=== PATIENT | male | born 1985 | race Caucasian/White ===

== ENCOUNTER → 2017-11-22 08:43 | Outpatient (CLI) | payer OTHER, SELFPAY ==
[2017-11-22 12:10] LABS: Anion Gap 6 (5-15); BUN 16 mg/dL (7-18); Calcium,Total 9.1 mg/dL (8.5-10.1); Chloride 105 mmol/L (98-107); Cholesterol 164 mg/dL (200); Creatinine, Serum 0.84 mg/dL (0.70-1.30); EST Glomerular Filtration Rate 112 mL/min (>60); Est Glom Filt Rate - Afr Amer 136 mL/min (>60); Glucose 89 mg/dL (74-106); High Density Lipoprotein 37 mg/dL; Potassium 4.5 mmol/L (3.5-5.1); Sodium Level 139 mmol/L (136-145); Triglycerides 102 mg/dL; Very Low Density Lipoprotein 20 mg/dL (5-40)
[2017-11-22 12:17] LABS: Hemoglobin A1c 5.8 % (4.2-6.3)
== END ==
PROVIDERS: Family Provider Family Medicine; PCP Family Medicine; Visit Provider Family Medicine
DX: R73.01 Impaired fasting glucose (principal); E78.5 Hyperlipidemia, unspecified
CPT/HCPCS: 36415; 80048; 80061; 83036

== ENCOUNTER 2021-11-05 15:39 | Outpatient (CLI) | payer BC, SELFPAY | END 2021-11-05 23:59 | disposition home or self-care (01) | PROVIDERS: PCP Family Medicine; Visit Provider Family Medicine | DX: G47.10 Hypersomnia, unspecified (principal) | CPT/HCPCS: 95806 ==

== ENCOUNTER → 2022-01-22 | Outpatient (CLI) | payer BC, SELFPAY | END | disposition home or self-care (01) | LOC: SL 02-05 19:03 | PROVIDERS: PCP Family Medicine; Referring Provider Family Medicine; Visit Provider Family Medicine | DX: G47.10 Hypersomnia, unspecified (principal) ==

== ENCOUNTER 2024-08-28 08:45 | Emergency (ER) | payer BC, SELFPAY ==
[2024-08-28 08:45] VITALS: BP 165/96; PULSE 91; RESP 18; TEMP 36.1; O2SAT 96
--- NOTE | 2024-08-28 09:05 | EX.ED.VIS.EY ---
HPI History of Present Illness Chief Complaint: Eye Problem Onset/Context/Timing Location: Right Eye Onset: Yesterday Context: Sudden Onset Timing: Continuous Worsened by: Opening his eye Relieved by: Closing his eye Associated Symptoms Associated Symptoms - Eyes: Burning, Crusting, Drainage, Eyelid swelling, Foreign body sensation, Matting, Pain, Photophobia and Redness Visual Changes: right: Blurred vision History of injury: Yes Visual correction: None Narrative Narrative: Patient presents with a right eye injury that occurred last night. Patient states he was milking his cow when he bent over and his daughter accidentally kicked him in the right eye with her boot that had cow manure or on it. Patient admits to some burning, redness, swelling, matting, and crusting. Patient admits to some blurred vision in his right eye. Patient denies wearing contacts or glasses. Patient denies any headaches. PFSH PFSH Medical History no medical history no medical history Home Medications ?Medication ?Instructions ?Recorded ?Last Taken ?Type naproxen 500 mg tablet (Naprosyn) 500 mg PO BID #14 tabs 06/18/15 Unknown Rx Allergy/AdvReac Type Severity Reaction Status Date / Time No Known Allergies Allergy Verified 08/28/24 08:46 Surgical History (Updated 08/28/24 @ 09:[address] Paul Kearney DO) Hx of hand surgery Social History Smoking Status: Never smoker ROS ROS ED Constitutional Constitutional ED: Denies chills or fever(s) Eyes Eyes: Denies blurry vision or change in vision ENT ENT ED: Reports rhinorrhea; Denies sore throat Cardiovascular Cardiovascular: Denies chest pain or palpitations Respiratory/Chest Respiratory/Chest: Reports cough; Denies dyspnea Gastrointestinal Gastrointestinal: Denies nausea or vomiting Genitourinary Genitourinary ED: Denies dysuria or hematuria Musculoskeletal Musculoskeletal: Reports back pain; Denies neck pain Integumentary Denies abscess or rash Neurologic Neurologic: Denies headache(s) or weakness Allergic/Immunologic Allergic/Immunologic ED: Denies mouth swelling or urticaria EXAM Physical Exam Const Vital Signs: 08/28/24 08:45 Temperature 97 F L Temperature Source Temporal Pulse Rate 91 Respiratory Rate 18 Blood Pressure 165/96 H Blood Pressure Mean 119 Pulse Ox 96 Oxygen Delivery Method Room Air Positive well nourished and well developed General Appearance ED: well developed and NAD Eyes Eyes Narrative: Tetracaine and fluorescein dye was applied. Patient was able to open his eye after this. There is some edema of the right upper eyelid. Conjunctiva was injected on the right. There is no foreign body noted. Anterior chamber was clear. There is no hyphema. There is no cell or flare. There is a corneal abrasion over the central cornea. Patient was unable to tolerate funduscopic examination. Neck supple and no JVD Neuro oriented x3, CN's II-XII intact bilaterally, moves all extremities and no sensory deficits noted Sensorium / Orientation: alert Motor Exam: strength 5/5 throughout MDM MDM MDM Narrative Medical decision making narrative: Patient was advised of his findings. Patient was given erythromycin ophthalmic ointment. Patient was instructed to apply this 4 times daily. Patient was instructed to follow-up with his eye doctor in 2 days for reevaluation. Patient was instructed to return if worse in any way. Patient understood and was agreeable with the plan. All questions were answered. Discharge Plan Triage Chief Complaint: Eye Problem ED Provider: Paul Kearney Dx/Rx/DC Orders Clinical Impression: Corneal abrasion, right, Elevated blood pressure reading Instructions: ED Corneal Abrasion Prescriptions: No Action naproxen [Naprosyn] 500 MG tablet 500 mg PO BID Qty: 14 0RF Primary Care Provider: Bandar Jacobson Referrals: Bandar Jacobson DO [Primary Care Provider] - 2 Days Cody Gallego MD [Med Staff - Active Staff] - 2 Days Print Language: Macedonian Disposition Disposition: Home, Self Care
[2024-08-28] MEDS: Tetracaine 0.5% Ophthalmic Bottle 1 DRP OPHTHALMIC (09:32)
[2024-08-28] MEDS: Fluorescein 1 MG STRIP 1 STRIP OPHTHALMIC (09:32)
[2024-08-28 09:33] VITALS: BMI 47.6
[2024-08-28 09:35] VITALS: BMI 47.6
[2024-08-28] MEDS: Erythromycin Ophthalmic (NSY) 1 GM OPTH.TUBE 1 APPLIC RIGHT EYE (10:24)
== END 2024-08-28 10:29 | disposition home or self-care (01) ==
PROVIDERS: Emergency Provider Emergency Medicine; PCP Family Medicine; Visit Provider Emergency Medicine
DX: S05.01XA Injury of conjunctiva and corneal abrasion without foreign body, right eye, initial encounter (principal); R03.0 Elevated blood-pressure reading, without diagnosis of hypertension; W50.1XXA Accidental kick by another person, initial encounter; Y93.89 Activity, other specified
CPT/HCPCS: 99282